=== PATIENT | male | born 1980 | race African-American/Black ===

== ENCOUNTER 2021-05-14 14:09 | Emergency (ER) | payer MEDICARE, MEDICAID, SELFPAY ==
--- NOTE | ~2021-05-14 | XR_ITS ---
XR elbow LT min 3V 05/14/2021 15:14 INDICATION: Left elbow pain PROCEDURE: 4 views left elbow COMPARISON: No prior studies for comparison. FINDINGS: Fracture, dislocation or subluxation is not identified. No significant joint effusion. The soft tissues appear within normal limits. No foreign bodies are identified. IMPRESSION: 1: NO ACUTE BONE OR JOINT ABNORMALITY IDENTIFIED. Reviewed, dictated and finalized at location A.
[2021-05-14 14:26] VITALS: BP 180/112; PULSE 77; RESP 16; TEMP 36.2; O2SAT 100
--- NOTE | 2021-05-14 15:30 | ED.EXTPRO ---
HPI - Extremity Problem General Chief complaint: Extremity Problem,Nontraumatic Stated complaint: Left elbow pain Time Seen by Provider: 05/14/21 14:59 Source: patient and RN notes reviewed Mode of arrival: ambulatory Limitations: no limitations History of Present Illness HPI Narrative: Patient presents today complaining of left elbow pain since last night. Denies any injury or trauma. Pain increases significantly when he bends his elbow. Denies numbness or tingling. Currently rates his pain 6/10 but this would take gabapentin with mild relief. Patient is a dialysis patient. MD Complaint: extremity pain and extremity swelling Related Data Home Medications Medication Instructions Recorded Confirmed calcium acetate(phosphat bind) 667 mg PO DIRECTED 05/14/21 05/14/21 carvedilol 25 mg PO DIRECTED 05/14/21 05/14/21 clonidine 0.3 mg TRANSDERMAL WEEKLY 05/14/21 05/14/21 clonidine HCl 0.3 mg PO DIRECTED 05/14/21 05/14/21 famotidine 20 mg PO DIRECTED 05/14/21 05/14/21 metoclopramide HCl 5 mg PO DIRECTED 05/14/21 05/14/21 minoxidil 10 mg PO DAILY 05/14/21 05/14/21 spironolactone 50 mg PO DAILY 05/14/21 05/14/21 Allergies Allergy/AdvReac Type Severity Reaction Status Date / Time No Known Allergies Allergy Verified 05/14/21 15:08 Review of Systems Review of Systems: Narrative: CONSTITUTIONAL: Denies body aches, fever, chills, or sweats. EYES: Denies visual changes, redness, or discharge. ENT: Denies rhinorrhea, congestion, sore throat, or otalgia. CARDIOVASCULAR: Denies chest pain, palpitations, or edema. RESPIRATORY: Denies cough or dyspnea. GASTROINTESTINAL: Denies abdominal pain, nausea, vomiting, or diarrhea. GENITOURINARY: Denies dysuria or hematuria. SKIN: Denies rash, itching, or wounds. MUSCULOSKELETAL: Denies back pain, or myalgia. + Left elbow pain and swelling NEUROLOGIC: Denies headache, numbness, tingling, or weakness. PSYCH: Denies depression or anxiety. PMFSH Comments At time of signature, I have reviewed and agree with nursing past medical, surgical, social and family history unless otherwise noted. Please see nursing chart for further information. There is no relevant family history pertinent to the presenting complaint Exam Narrative: Exam Narrative: GENERAL: Well-appearing, well-nourished, and in no acute distress. HEAD: Normocephalic, atraumatic. EYES: EOMI. No redness or drainage. Conjunctivae normal. ENT: Mucous membranes pink and moist. NECK: Normal AROM. CHEST: No respiratory distress. MUSCULOSKELETAL: Left elbow: Normal color. No bony tenderness about the elbow. Patient has soft tissue tenderness laterally and superiorly of the olecranon with obvious localized edema. Patient can fully extend without pain but has pain at 90 degree flexion. Distal sensation intact. Capillary refill normal. Radial pulse normal. EXTREMITIES: Normal range of motion. No edema. SKIN: Warm, dry, no rash. Capillary refill normal. Normal skin turgor. NEURO: No focal deficits. Alert and oriented x3. Gait steady. PSYCH: Normal affect. No signs of depression or anxiety. Course Vital Signs Vital signs: Vital Signs Temperature 97.2 F L 05/14/21 14:26 Pulse Rate 77 05/14/21 14:26 Respiratory Rate 16 05/14/21 14:26 Blood Pressure 180/112 H 05/14/21 14:26 Pulse Oximetry 100 05/14/21 14:26 Temperature 97.2 F L 05/14/21 14:26 Pulse Rate 77 05/14/21 14:26 Respiratory Rate 16 05/14/21 14:26 Blood Pressure 183/113 H 05/14/21 15:53 Pulse Oximetry 100 05/14/21 14:26 Reviewed. Pt has been instructed to follow up with his PCP regarding his elevated blood pressure today. Pt states this is a normal blood pressure for himself. MDM - Extremity (Nontraumatic) Differential Diagnosis Differential diagnosis: Likely gout, cellulitis and other (Bursitis, elbow effusion) Imaging Data Radiologist's impression: ITS Impressions Elbow X-Ray 05/14/21 15:21 IMPRESSION: 1: N
[2021-05-14 15:53] VITALS: BP 183/113
== END 2021-05-14 15:52 | disposition home or self-care (01) ==
PROVIDERS: Emergency Provider Nurse Practitioner
DX: M70.32 Other bursitis of elbow, left elbow (principal)
CPT/HCPCS: 73080; 99213; G0463